=== PATIENT | male | born 1985 | race Caucasian/White ===

== ENCOUNTER 2017-08-27 12:05 | Emergency (ER) | payer BC ==
[~2017-08-27] VITALS: Ht 177.8 cm; Wt 77.1 kg
[2017-08-27] MEDS ORDERED: NKM (12:12)
[2017-08-27 12:15] VITALS: BP 119/70
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
[2017-08-27] MEDS ORDERED: Norco 5mg/325mg tab ORAL ONE (12:30)
[2017-08-27] MEDS ORDERED: TRAMADOL HCL50 MG ORAL (13:07)
[2017-08-27 13:26] VITALS: BP 116/67
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
== END 2017-08-27 13:30 | disposition home or self-care (01) ==
LOC: EMR 12:30
DX: S43.402A Unspecified sprain of left shoulder joint, initial encounter (principal); S40.212A Abrasion of left shoulder, initial encounter; V18.4XXA Pedal cycle driver injured in noncollision transport accident in traffic accident, initial encounter; Y93.55 Activity, bike riding; Y92.414 Local residential or business street as the place of occurrence of the external cause
CPT/HCPCS: 99283